=== PATIENT | female | born 1970 | race Hispanic/Latino ===

== ENCOUNTER 2016-09-13 00:43 | Observation (INO) | payer SELFPAY ==
[2016-09-13 00:43] VITALS: BMI 10.8
[2016-09-13 01:01] VITALS: RESP 16
--- NOTE | 2016-09-13 01:07 | C.PDOC ---
History Of Present Illness A 46 y/o F was found drunk in front of a house [employer]. Admits to drinking ETOH. Denies suicidal, homicidal ideation, or any physical complaints. Time Seen by Provider: 09/13/16 01:07 Chief Complaint (Nursing): Substance Abuse History Per: Patient History/Exam Limitations: no limitations Onset/Duration Of Symptoms: Hrs Current Symptoms Are (Timing): Still Present Suicide/Self Injury Attempted (Context): None Modifying Factor(s): Alcohol Severity: Mild Associated Symptoms: denies: Suicidal Thoughts, Suicidal Plan Involuntary Hold By: None Recent travel outside of the [place]: No Additional History Per: Patient Past Medical History Reviewed: Historical Data, Nursing Documentation, Vital Signs Vital Signs: Last Vital Signs Temp 97.9 F 09/13/16 05:29 Pulse 82 09/13/16 05:29 Resp 16 09/13/16 05:29 BP 95/62 L 09/13/16 05:29 Pulse Ox 98 09/13/16 05:29 - Medical History PMH: Bronchitis, Gall Bladder Disease, Migraine Denies: Chronic Kidney Disease Surgical History: Appendectomy (2000), Tonsillectomy (At 14yo) - [facility] Procedures APPLICATION OF SPLINT (02/10/14) Family History: States: Unknown Family Hx - Social History Hx Tobacco Use: Yes Hx Alcohol Use: Yes Hx Substance Use: Yes - Immunization History Hx Tetanus Toxoid Vaccination: No Hx Influenza Vaccination: No Hx Pneumococcal Vaccination: No Review Of Systems Constitutional: Positive for: Other (ETOH intoxicated). Negative for: Fever, Chills, Sweats Cardiovascular: Negative for: Chest Pain, Palpitations Respiratory: Negative for: Shortness of Breath Gastrointestinal: Negative for: Nausea, Vomiting, Abdominal Pain, Diarrhea Skin: Negative for: Rash, Lesions, Bruising Neurological: Negative for: Dizziness Psych: Negative for: Anxiety, Suicidal ideation, Other (Homicidal ideation) Physical Exam - Physical Exam Appears: Non-toxic, No Acute Distress, Other (ETOH intoxicated, (+) AOB, no signs of visible trauma) Skin: Warm, Dry Head: Atraumatic Eye(s): bilateral: Normal Inspection Oral Mucosa: Moist Neck: Trachea Midline, Supple Chest: Symmetrical Cardiovascular: Rhythm Regular Respiratory: No Rales, No Rhonchi, No Wheezing Gastrointestinal/Abdominal: Soft, No Tenderness Back: No CVA Tenderness Neurological/Psych: Oriented x3 (Awake and alert) Gait: Unsteady ED Course And Treatment O2 Sat by Pulse Oximetry: 97 (RA) Pulse Ox Interpretation: Normal Reevaluation Time: 05:48 Reassessment Condition: Improved ED OBSERVATION Discharge: Yes Date of observation admission: 09/13/16 Time of observation admission: 01:34 - Observation admission statement Patient is being placed in observation because:: acute alcohol intoxication - Goals of Observation Goals of observation are:: sobriety - Progress Note Progress Note: 09/13/16 01:35 vitals stable Disposition Counseled Patient/Family Regarding: Studies Performed, Diagnosis, Need For Followup - Disposition Disposition: HOME/ ROUTINE Disposition Time: 01:07 Condition: FAIR - Clinical Impression Clinical Impression: Alcohol intoxication - Scribe Statement The provider has reviewed the documentation as recorded by the Scribselvin esquivel All medical record entries made by the Ankuribselvin were at my direction and personally dictated by me. I have reviewed the chart and agree that the record accurately reflects my personal performance of the history, physical exam, medical decision making, and the department course for this patient. I have also personally directed, reviewed, and agree with the discharge instructions and disposition.
[2016-09-13 05:29] VITALS: BP 95/62; PULSE 82; TEMP 97.9
[2016-09-13 05:49] VITALS: O2SAT 97
== END 2016-09-13 05:49 | disposition home or self-care (01) ==
LOC: C.ER 00:43 → C.9OBSV 01:33
PROVIDERS: ADMIT Emergency Medicine; ATTEND Emergency Medicine
DX: F10.129 Alcohol abuse with intoxication, unspecified (principal); Z87.891 Personal history of nicotine dependence; Y90.9 Presence of alcohol in blood, level not specified

== ENCOUNTER 2017-04-09 12:02 | Emergency (ER) | payer OTHER ==
[2017-04-09 12:46] VITALS: BMI 25.9
--- NOTE | 2017-04-09 14:06 | C.PDOC ---
History Of Present Illness 46 y/o female presents to ED with complaints of right rib pain developing 4 am this morning associated with cough she has had for 2 weeks. Patient states she has had cold like symptoms and now developing rib pain she thinks is because of too much coughing. Patient denies fever, chills, abdominal pain, sob or any other complaints at this time. Time Seen by Provider: 04/09/17 13:48 Chief Complaint (Nursing): Cough, Cold, Congestion History Per: Patient History/Exam Limitations: no limitations Onset/Duration Of Symptoms: Hrs Current Symptoms Are (Timing): Still Present Associated Symptoms: Cough Past Medical History Reviewed: Historical Data, Nursing Documentation, Vital Signs Vital Signs: Last Vital Signs Temp 100.3 F H 04/09/17 12:46 Pulse 85 04/09/17 12:46 Resp 18 04/09/17 12:46 BP 125/80 04/09/17 12:46 Pulse Ox 96 04/09/17 15:37 - Medical History PMH: Bronchitis, Gall Bladder Disease, Migraine Surgical History: Appendectomy (2000), Tonsillectomy (At 14yo) - [facility] Procedures APPLICATION OF SPLINT (02/10/14) Family History: States: No Known Family Hx - Social History Hx Tobacco Use: Yes Hx Alcohol Use: Yes Hx Substance Use: Yes - Immunization History Hx Tetanus Toxoid Vaccination: No Hx Influenza Vaccination: No Hx Pneumococcal Vaccination: No Review Of Systems Constitutional: Negative for: Fever, Chills Respiratory: Positive for: Cough Gastrointestinal: Negative for: Nausea, Vomiting, Abdominal Pain Musculoskeletal: Positive for: Other (rib pain) Physical Exam - Physical Exam Appears: Non-toxic, No Acute Distress Skin: Warm, Dry, No Rash Head: Atraumatic, Normacephalic Eye(s): bilateral: Normal Inspection Oral Mucosa: Moist Neck: Normal ROM, Supple Cardiovascular: Rhythm Regular Respiratory: Normal Breath Sounds, No Rales, No Rhonchi, No Wheezing Gastrointestinal/Abdominal: Soft, No Tenderness, No Guarding, No Rebound Extremity: Normal ROM, Capillary Refill (<2 seconds) Neurological/Psych: Oriented x3 ED Course And Treatment ECG: Interpreted By Me, Viewed By Me ECG Rhythm: Sinus Rhythm Rate From EC (bpm) O2 Sat by Pulse Oximetry: 96 (RA) Pulse Ox Interpretation: Normal - Other Rad CXR X-Ray: Viewed By Me, Read By Radiologist Interpretation: IMPRESSION: Right lower lobe opacities noted within the medial right lower lobe as well as right mid to lower lateral lung zone possibly pleural based opacities. Correlate clinically for pneumonia. Recommend follow- up to complete resolution. Small right pleural effusion. Mild biapical pleural thickening. Mild cardiomegaly. Progress Note: ECG, CXR ordered. Influenza test. Blood work, UA ordered. CXR showed right lower lobe infiltrate. Antibiotics IV given at ED. Patient will be discharged with PO antibiotics Disposition Counseled Patient/Family Regarding: Studies Performed, Diagnosis, Need For Followup, Rx Given - Disposition Referrals: [facility] [Outside] Disposition: HOME/ ROUTINE Disposition Time: 16:47 Condition: STABLE Additional Instructions: Follow up with your doctor or our clinic. Prescriptions: Azithromycin 1 tab PO DAILY #6 tab Ibuprofen [Motrin] 1 tab PO TID PRN #30 tab PRN Reason: Pain Instructions: Community Acquired Pneumonia (ED) Forms: [facility] (Faroese), Work Excuse - POA Present On Arrival: None - Clinical Impression Clinical Impression: Pneumonia - Scribe Statement The provider has reviewed the documentation as recorded by the Scribselvin Arthur All medical record entries made by the Ankuribselvin were at my direction and personally dictated by me. I have reviewed the chart and agree that the record accurately reflects my personal performance of the history, physical exam, medical decision making, and the department course for this patient. I have also personally directed, reviewed, and agree with the discharge instructions and disposition.
[2017-04-09] MEDS ORDERED: Albuterol 0.083% Inhal Sol (2.5 mg/3 mL) UD INH SCH (14:15)
--- NOTE | 2017-04-09 14:31 | RAD ---
HISTORY: SOB COMPARISON: Chest x-ray performed 07/04/16 TECHNIQUE: Chest PA and lateral FINDINGS: LUNGS: Right lower lobe opacities noted within the medial right lower lobe as well as right mid to lower lateral lung zone possibly pleural based opacities. Recommend follow-up to complete resolution. Small right pleural effusion. No definite pneumothorax. Mild biapical pleural thickening. Please note that chest x-ray has limited sensitivity for the detection of pulmonary masses. CARDIOVASCULAR: Mild cardiomegaly. OSSEOUS STRUCTURES: Degenerative changes. VISUALIZED UPPER ABDOMEN: Unremarkable. OTHER FINDINGS: None. IMPRESSION: Right lower lobe opacities noted within the medial right lower lobe as well as right mid to lower lateral lung zone possibly pleural based opacities. Correlate clinically for pneumonia. Recommend follow-up to complete resolution. Small right pleural effusion. Mild biapical pleural thickening. Mild cardiomegaly.
[2017-04-09] MEDS ORDERED: cefTRIAXone IV 1 gm in Dextros 50 ML IVPB ONE (14:34)
[2017-04-09] MEDS ORDERED: Sodium Chloride 0.9% 1,000 ML IV ONE (14:36)
[2017-04-09] MEDS ORDERED: Sodium Chloride 0.9% 1,000 ML ONE (15:06)
[2017-04-09] MEDS: Albuterol 0.083% Inhal Sol (2.5 mg/3 mL) UD INH SCH ×2 (16:00→16:15)
[2017-04-09] MEDS ORDERED: Albuterol 0.083% Inhal Sol (2.5 mg/3 mL) UD ONE (16:08)
[2017-04-09 17:05] VITALS: BP 120/82; PULSE 88; RESP 19; TEMP 97.7; O2SAT 95
== END 2017-04-09 17:19 | disposition home or self-care (01) ==
LOC: C.ER 12:02
DX: J18.9 Pneumonia, unspecified organism (principal); Z87.891 Personal history of nicotine dependence
CPT/HCPCS: 71046; 87804; 94640; 96365; 96372; 99283; J0696; J1885; J7040

== ENCOUNTER 2018-05-21 17:49 | Observation (INO) | payer SELFPAY ==
[2018-05-21 17:49] VITALS: BMI 25.9
--- NOTE | 2018-05-21 19:53 | C.PDOC ---
History Of Present Illness 47 y/o female presents for evaluation of pressure-like chest pain since yesterday. Pain is described as mid-sternal, non-radiating, and began while patient was sitting down, non-exertional. Patient reports associated SOB. At present she is asymptomatic and has no pain. Patient did not take any medication [employer]. Patient admits she had similar pain last year, and underwent a stress test that was abnormal, but nothing came of it. Additionally, patient states that she had been feeling dizzy for about a week when a few days ago she fell, hit her head, and passed out. She denies any other injury. No recent travel. No recent hospitalizations. Patient admits to mild cough. She denies any fevers, chills, nausea, vomiting, or change in bowel movements. Patients blood pressure was found to be elevated at 175/131 on arrival. At time of examination BP is now 155/92, without medical intervention. Patient states she has no prior hx of hypertension. Time Seen by Provider: 05/21/18 19:12 Chief Complaint (Nursing): Chest Pain History Per: Patient History/Exam Limitations: no limitations Onset/Duration Of Symptoms: Days (x 1) Current Symptoms Are (Timing): Gone Quality: Pressure Alleviating Factors: None Past Medical History Reviewed: Historical Data, Nursing Documentation, Vital Signs Vital Signs: Last Vital Signs Temp 98.4 F 05/21/18 17:56 Pulse 84 05/21/18 19:05 Resp 17 05/21/18 19:05 BP 155/92 H 05/21/18 19:05 Pulse Ox 97 05/21/18 19:05 - Medical History PMH: Bronchitis, Gall Bladder Disease, Migraine Denies: Chronic Kidney Disease Surgical History: Appendectomy (2000), Tonsillectomy (At 14yo) - [facility] Procedures APPLICATION OF SPLINT (02/10/14) Family History: States: Unknown Family Hx - Social History Hx Tobacco Use: Yes Hx Alcohol Use: Yes Hx Substance Use: Yes - Immunization History Hx Tetanus Toxoid Vaccination: No Hx Influenza Vaccination: No Hx Pneumococcal Vaccination: No Review Of Systems Except As Marked, All Systems Reviewed And Found Negative. Constitutional: Negative for: Fever Eyes: Negative for: Vision Change Cardiovascular: Positive for: Chest Pain. Negative for: Palpitations Respiratory: Positive for: Cough, Shortness of Breath. Negative for: Pleuritic Pain Gastrointestinal: Negative for: Nausea, Vomiting, Abdominal Pain, Diarrhea Musculoskeletal: Negative for: Back Pain Skin: Negative for: Rash Neurological: Positive for: Dizziness, Other (Syncopal episode). Negative for: Weakness, Numbness, Headache Physical Exam - Physical Exam Appears: Non-toxic, No Acute Distress Skin: Warm, Dry, No Rash Head: Normacephalic, Swelling (Hematoma to the right forehead) Eye(s): bilateral: Normal Inspection (conjunctiva clear), PERRL, EOMI Oral Mucosa: Moist Neck: Normal ROM Chest: Symmetrical, No Tenderness Cardiovascular: Rhythm Regular, No Murmur, Other (Normal S1,S2) Respiratory: No Rales, No Rhonchi, No Wheezing, Other (Lungs CTA bilaterally) Gastrointestinal/Abdominal: Soft, No Tenderness, No Distention, No Guarding, No Rebound Extremity: Bilateral: Atraumatic, Normal Color And Temperature, Other (no cyanosis or edema) Pulses: Left Dorsalis Pedis: Normal, Right Dorsalis Pedis: Normal Neurological/Psych: Oriented x3, Normal Speech, Normal Cranial Nerves (2-12 intact), Normal Motor, Normal Sensation, Other (GCS of 15) ED Course And Treatment - Laboratory Results Result Diagrams: 05/21/18 20:03 05/21/18 20:03 ECG: Interpreted By Ne ECG Rhythm: Sinus Rhythm Interpretation Of ECG: Normal intervals, Right axis deviation, No ST elevations or depressions Rate From EC O2 Sat by Pulse Oximetry: 97 (RA) Pulse Ox Interpretation: Normal - CT Scan/US CT Head Other Rad Studies (CT/US): Read By Radiologist, Radiology Report Reviewed CT/US Interpretation: EXAM: CT Head without Intravenous Contrast. CLINICAL HISTORY: Trauma/syncope. TECHNIQUE: Axial computed tomography images of the head/brain without intravenous contrast. COMPARISON: None provided. FINDINGS: BRAIN. No acute intraparenchymal hemorrhage. No mass lesion. No CT evidence for acute territorial infarct. No midline shift or extra-axial collections. VENTRICLES: No hydrocephalus. ORBITS: The orbits are unremarkable. SINUSES AND MASTOIDS: Bilateral ethmoid and maxillary sinusitis. The mastoid air cells are clear. BONES: No fracture. SOFT TISSUES: Unremarkable. IMPRESSION: S inusitis. No acute intracranial abnormality. Medical Decision Making Medical Decision Making: Impression: Chest pain Plan: - EKG - CXR - Labs - Head CT Progress: CT shows sinusitis, no acute abnormality. Discussed lab results with patient, urine positive for cocaine, she reports chest pain at this time, advised she should be admitted, patient agrees with plan. Spoke with Dr. Lara who accepted patient. Disposition Counseled Patient/Family Regarding: Studies Performed, Diagnosis - Disposition Disposition: HOSPITALIZED Disposition Time: 22:00 Condition: STABLE - Clinical Impression Clinical Impression: Cocaine abuse, Chest pain - Scribe Statement The provider has reviewed the documentation as recorded by the Mary Chambers Provider Attestation: All medical record entries made by the Mary were at my direction and personally dictated by me. I have reviewed the chart and agree that the record accurately reflects my personal performance of the history, physical exam, medical decision making, and the department course for this patient. I have also personally directed, reviewed, and agree with the discharge instructions and disposition.
[2018-05-21 20:15] LABS: BASO # 0.1 K/uL (0.0-0.2); BASO % 1.1 % (0.0-2.0); EOS # 0.4 K/uL (0.0-0.7); EOS % 7.8 % (0.0-4.0); HEMOGLOBIN 14.2 g/dL (11.0-16.0); LYMPH # 1.3 K/uL (1.0-4.3); LYMPH % 23.9 % (20.0-40.0); MEAN CORPUSCULAR HEMOGLOBIN 35.8 pg (27.0-31.0); MEAN CORPUSCULAR HGB CONC 32.8 g/dL (33.0-37.0); MEAN PLATELET VOLUME 8.9 fL (7.2-11.7); MONO # 0.7 K/uL (0.0-0.8); NEUT % 55.2 % (50.0-75.0); NRBC % 0.2 % (0.0-2.0); RBC 3.96 Mil/uL (3.80-5.20); RED CELL DISTRIBUTION WIDTH 15.7 % (11.5-14.5); WHITE BLOOD COUNT 5.4 K/uL (4.8-10.8)
[2018-05-21 20:22] LABS: MEAN CELL VOLUME 109.4 fL (81.0-99.0)
[2018-05-21 20:24] LABS: INR 0.9
[2018-05-21 20:25] LABS: PROTHROMBIN TIME 9.9 SECONDS (9.7-12.2)
[2018-05-21 20:31] LABS: ALB/GLOB RATIO 1.5 (1.0-2.1); ALBUMIN 4.8 g/dL (3.5-5.0); ALT/SGPT 78 U/L (9-52); AST/SGOT 123 U/L (14-36); BLOOD UREA NITROGEN 6 mg/dL (7-17); CALCIUM 9.8 mg/dl (8.6-10.4); GFR NON-AFRICAN AMERICAN > 60
[2018-05-21 21:11] LABS: BARBITURATES, UR NEGATIVE (NEGATIVE); BENZODIAZEPINES, UR NEGATIVE (NEGATIVE); OPIATES, UR NEGATIVE (NEGATIVE); PHENCYCLIDINE, UR NEGATIVE (NEGATIVE)
[2018-05-21] MEDS ORDERED: Nitroglycerin 2% Ointment Foilpak UD TOP ONE (22:34)
--- NOTE | 2018-05-21 23:02 | CP.PCM.HP ---
<Chaparro Maxwell - Last Filed: 05/22/18 04:34> History of Present Illness - History of Present Illness History of Present Illness: H&P for Dr. Lara. 47 F w/ PMhx of HTN, schleroderma, raynauds presents to ED for 2 day of chest pain. Patient states pain for past 2 days was intermit, w/ radiation to R shoulder, 7/10 at its peak. Pt reports SOB associated with chest pain & dizziness. Patient reports having gotten dizzy approximately 2 days prior, resulting her to fall and hit her head against furniture. Patient denies recent travel, ill contacts, being sick. ROS: Denies abdominal pain, lower extremity pain, constipation, diarrhea, nausea, vomiting PMD: Denies PMHx: HTN PSHx: Appendectomy, tonsilectomy Meds: None Allergies: Pseudoephedrine anaphylaxis Family Hx: father [place] in 40s, of CHF at 71; mother, of CVA at 54; brother, [place] at 38 SHx: + cocaine use last week, denies ETOH (previous hx ETOH abuse), denies other drug use, smokes 1 pack per day, 20 + year, denies ETOH use Present on Admission - Present on Admission Any Indicators Present on Admission: No History of DVT/PE: No History of Uncontrolled Diabetes: No Urinary Catheter: No Decubitus Ulcer Present: No Review of Systems - Constitutional Constitutional: absent: Chills, Fever - EENT Eyes: absent: Blurred Vision, Change in Vision Nose/Mouth/Throat: absent: Nasal Congestion, Nose Pain - Cardiovascular Cardiovascular: Chest Pain, Chest Pain at Rest. absent: Dyspnea - Respiratory Respiratory: Dyspnea - Gastrointestinal Gastrointestinal: absent: Abdominal Pain, Bloating - Genitourinary Genitourinary: absent: Change in Urinary Stream, Hematuria - Musculoskeletal Musculoskeletal: absent: Arthralgias, Myalgias - Neurological Neurological: absent: Abnormal Gait, Abnormal Hearing - Psychiatric Psychiatric: absent: Confusion, Depression Past Patient History - Past Medical History & Family History Past Medical History?: Yes - Past Social History Smoking Status: Heavy Smoker > 10 Cigarettes Daily - CARDIAC Hx Cardiac Disorders: Yes (See comment) Hx Circulatory Problems: Yes (Reynaud's) Other/Comment: Scleraderma. Systematic sclorosis - PULMONARY Hx Bronchitis: Yes - NEUROLOGICAL Hx Migraine: Yes - HEENT Hx HEENT Problems: Yes Hx Epistaxis: Yes - RENAL Hx Chronic Kidney Disease: No - ENDOCRINE/METABOLIC Hx Endocrine Disorders: No - HEMATOLOGICAL/ONCOLOGICAL Hx Blood Disorders: No - INTEGUMENTARY Hx Dermatological Problems: No - MUSCULOSKELETAL/RHEUMATOLOGICAL Hx Musculoskeletal Disorders: Yes Hx Back Pain: Yes Hx Falls: No - GASTROINTESTINAL Hx Gall Bladder Disease: Yes - GENITOURINARY/GYNECOLOGICAL Hx Genitourinary Disorders: No - PSYCHIATRIC Hx Substance Use: Yes - SURGICAL HISTORY Hx Appendectomy: Yes (2000) Hx Tonsillectomy: Yes (At 14yo) - ANESTHESIA Hx Anesthesia: Yes Hx Anesthesia Reactions: No Hx Malignant Hyperthermia: No Meds Allergies/Adverse Reactions: Allergies Allergy/AdvReac Type Severity Reaction Status Date / Time pseudoephedrine HCl Allergy ANGIOEDEMA Verified 04/09/17 12:44 [From Sudafed] Physical Exam - Constitutional Appears: Non-toxic, No Acute Distress - Head Exam Additional comments: R forehead bruise/ resolving - Eye Exam Eye Exam: EOMI, Normal appearance Pupil Exam: NORMAL ACCOMODATION - ENT Exam ENT Exam: Mucous Membranes Moist - Respiratory Exam Respiratory Exam: Clear to Auscultation Bilateral, NORMAL BREATHING PATTERN. absent: Rales, Rhonchi, Wheezes - Cardiovascular Exam Cardiovascular Exam: +S1, +S2. absent: Systolic Murmur - GI/Abdominal Exam GI & Abdominal Exam: Normal Bowel Sounds, Soft, Tenderness. absent: Distended, Firm Additional comments: + muprhy sign - Extremities Exam Extremities exam: Positive for: full ROM, normal inspection. Negative for: calf tenderness, pedal edema - Back Exam Back exam: CVA tenderness (L), CVA tenderness (R) - Neurological Exam Neurological exam: Alert, Oriented x3 - Psychiatric Exam Psychiatric exam: Normal Affect, Normal Mood - Skin Skin Exam: Dry, Intact, Normal Color, Warm Results - Vital Signs Recent Vital Signs: Last Vital Signs Temp 98.4 F 05/21/18 17:56 Pulse 84 05/21/18 19:05 Resp 17 05/21/18 19:05 BP 155/92 H 05/21/18 19:05 Pulse Ox 97 05/21/18 22:14 - Labs Result Diagrams: 05/21/18 20:03 05/21/18 20:03 Labs: Laboratory Results - last 24 hr 05/21/18 05/21/18 05/21/18 20:03 20:03 20:03 WBC 5.4 RBC 3.96 Hgb 14.2 Hct 43.3 MCV 109.4 H D MCH 35.8 H MCHC 32.8 L RDW 15.7 H Plt Count 202 MPV 8.9 Neut % (Auto) 55.2 Lymph % (Auto) 23.9 [place] % (Auto) 12.0 H Eos % (Auto) 7.8 H Baso % (Auto) 1.1 Neut # (Auto) 3.0 Lymph # (Auto) 1.3 [place] # (Auto) 0.7 Eos # (Auto) 0.4 Baso # (Auto) 0.1 PT 9.9 INR 0.9 APTT 38 H Sodium 140 Potassium 3.6 Chloride 101 Carbon Dioxide 28 Anion Gap 15 BUN 6 L Creatinine 0.7 Est GFR ( Amer) > 60 Est GFR (Non-Af Amer) > 60 Random Glucose 53 L D Calcium 9.8 Total Bilirubin 0.9 AST 123 H ALT 78 H Alkaline Phosphatase 80 Troponin I < 0.0120 Total Protein 8.1 Albumin 4.8 Globulin 3.3 Albumin/Globulin Ratio 1.5 Urine Opiates Screen Urine Methadone Screen Ur Barbiturates Screen Ur Phencyclidine Scrn Ur Amphetamines Screen U Benzodiazepines Scrn U Oth Cocaine Metabols U Cannabinoids Screen 05/21/18 20:45 WBC RBC Hgb Hct MCV MCH MCHC RDW Plt Count MPV Neut % (Auto) Lymph % (Auto) [place] % (Auto) Eos % (Auto) Baso % (Auto) Neut # (Auto) Lymph # (Auto) [place] # (Auto) Eos # (Auto) Baso # (Auto) PT INR APTT Sodium Potassium Chloride Carbon Dioxide Anion Gap BUN Creatinine Est GFR ( Amer) Est GFR (Non-Af Amer) Random Glucose Calcium Total Bilirubin AST ALT Alkaline Phosphatase Troponin I Total Protein Albumin Globulin Albumin/Globulin Ratio Urine Opiates Screen Negative Urine Methadone Screen Negative Ur Barbiturates Screen Negative Ur Phencyclidine Scrn Negative Ur Amphetamines Screen Negative U Benzodiazepines Scrn Negative U Oth Cocaine Metabols Positive H U Cannabinoids Screen Negative Assessment & Plan - Assessment and Plan (Free Text) Assessment: 47 F w/ PMhx of HTN, raynauds, scleroderma, presents with dizziness and chest pain Plan: Chest Pain R/o ACS - UDS cocaine + - EKG NSR w/ HR 100 BPM - CXRAY: barel shape chest, no acute disease identified, will f/u official read - JARON X 2 negative F/u 3rd JARON - F/u Lipid, TSH - ECHO 2016 EF 65% - c/w aspirin 81 mg daily Abdominal pain - F/u Abd U/S - F/u hepatitis panel - T. Bili 0/9 - AST/ ALT elevated 123/78 History of Hypertensive - Avoid beta blockers - BP 150s, 1 X IV enalapril 2.5 mg, will monitor PPx - DVT: lovenox 40 SC, SCDs - heart health diet <Blayne Lara - Last Filed: 05/22/18 05:53> Results - Vital Signs Recent Vital Signs: Last Vital Signs Temp 98.2 F 05/22/18 03:02 Pulse 60 05/22/18 03:02 Resp 20 05/22/18 03:02 BP 155/91 H 05/22/18 03:02 Pulse Ox 97 05/22/18 03:02 - Labs Result Diagrams: 05/22/18 04:59 05/21/18 20:03 Labs: Laboratory Results - last 24 hr 05/21/18 05/21/18 05/21/18 20:03 20:03 20:03 WBC 5.4 RBC 3.96 Hgb 14.2 Hct 43.3 MCV 109.4 H D MCH 35.8 H MCHC 32.8 L RDW 15.7 H Plt Count 202 MPV 8.9 Neut % (Auto) 55.2 Lymph % (Auto) 23.9 [place] % (Auto) 12.0 H Eos % (Auto) 7.8 H Baso % (Auto) 1.1 Neut # (Auto) 3.0 Lymph # (Auto) 1.3 [place] # (Auto) 0.7 Eos # (Auto) 0.4 Baso # (Auto) 0.1 PT 9.9 INR 0.9 APTT 38 H Sodium 140 Potassium 3.6 Chloride 101 Carbon Dioxide 28 Anion Gap 15 BUN 6 L Creatinine 0.7 Est GFR ( Amer) > 60 Est GFR (Non-Af Amer) > 60 Random Glucose 53 L D Calcium 9.8 Total Bilirubin 0.9 AST 123 H ALT 78 H Alkaline Phosphatase 80 Total Creatine Kinase CK-MB (Mass) Troponin I < 0.0120 Total Protein 8.1 Albumin 4.8 Globulin 3.3 Albumin/Globulin Ratio 1.5 LDL Cholesterol Direct TSH 3rd Generation Urine Opiates Screen Urine Methadone Screen Ur Barbiturates Screen Ur Phencyclidine Scrn Ur Amphetamines Screen U Benzodiazepines Scrn U Oth Cocaine Metabols U Cannabinoids Screen Alcohol, Quantitative Hep Bs Antigen 05/21/18 05/22/18 05/22/18 20:45 04:09 04:59 WBC RBC Hgb Hct MCV MCH MCHC RDW Plt Count MPV Neut % (Auto) Lymph % (Auto) [place] % (Auto) Eos % (Auto) Baso % (Auto) Neut # (Auto) Lymph # (Auto) [place] # (Auto) Eos # (Auto) Baso # (Auto) PT INR APTT Sodium Potassium Chloride Carbon Dioxide Anion Gap BUN Creatinine Est GFR ( Amer) Est GFR (Non-Af Amer) Random Glucose Calcium Total Bilirubin AST ALT Alkaline Phosphatase Total Creatine Kinase 62 CK-MB (Mass) 0.41 Troponin I 0.0150 Total Protein Albumin Globulin Albumin/Globulin Ratio LDL Cholesterol Direct TSH 3rd Generation Urine Opiates Screen Negative Urine Methadone Screen Negative Ur Barbiturates Screen Negative Ur Phencyclidine Scrn Negative Ur Amphetamines Screen Negative U Benzodiazepines Scrn Negative U Oth Cocaine Metabols Positive H U Cannabinoids Screen Negative Alcohol, Quantitative < 10 Hep Bs Antigen Negative 05/22/18 05/22/18 04:59 04:59 WBC 4.7 L RBC 3.86 Hgb 13.8 Hct 42.1 MCV 109.2 H MCH 35.8 H MCHC 32.8 L RDW 15.2 H Plt Count 179 MPV 8.7 Neut % (Auto) 47.4 L Lymph % (Auto) 30.6 [place] % (Auto) 13.4 H Eos % (Auto) 7.4 H Baso % (Auto) 1.2 Neut # (Auto) 2.2 Lymph # (Auto) 1.4 [place] # (Auto) 0.6 Eos # (Auto) 0.3 Baso # (Auto) 0.1 PT INR APTT Sodium Potassium Chloride Carbon Dioxide Anion Gap BUN Creatinine Est GFR ( Amer) Est GFR (Non-Af Amer) Random Glucose Calcium Total Bilirubin AST ALT Alkaline Phosphatase Total Creatine Kinase CK-MB (Mass) Troponin I Total Protein Albumin Globulin Albumin/Globulin Ratio LDL Cholesterol Direct 113 TSH 3rd Generation 4.45 Urine Opiates Screen Urine Methadone Screen Ur Barbiturates Screen Ur Phencyclidine Scrn Ur Amphetamines Screen U Benzodiazepines Scrn U Oth Cocaine Metabols U Cannabinoids Screen Alcohol, Quantitative Hep Bs Antigen Assessment & Plan - Date & Time Date: 05/22/18 (I have seen and examined the patient. I agree with the findings and plan of care as documented by Dr. Maxwell. Patient with chest pain. Cocaine abuse. Avoid beta blockers. ROMIx3 with EKG. Aspirin and Statin. Abdominal pain. Check Ultrasound. Check hep panel. History of scleroderma. Not currently on any medications. Monitor for acute changes.) Time: 05:51 Attending/Attestation - Attestation I have personally seen and examined this patient.: Yes I have fully participated in the care of the patient.: Yes I have reviewed all pertinent clinical information: Yes
[2018-05-22 04:44] LABS: CK-MB 0.41 ng/mL (0.0-3.38)
[2018-05-22 05:11] LABS: BASO # 0.1 K/uL (0.0-0.2); BASO % 1.2 % (0.0-2.0); EOS # 0.3 K/uL (0.0-0.7); EOS % 7.4 % (0.0-4.0); HEMOGLOBIN 13.8 g/dL (11.0-16.0); LYMPH # 1.4 K/uL (1.0-4.3); LYMPH % 30.6 % (20.0-40.0); MEAN CELL VOLUME 109.2 fL (81.0-99.0); MEAN CORPUSCULAR HEMOGLOBIN 35.8 pg (27.0-31.0); MEAN CORPUSCULAR HGB CONC 32.8 g/dL (33.0-37.0); MEAN PLATELET VOLUME 8.7 fL (7.2-11.7); MONO # 0.6 K/uL (0.0-0.8); MONO % 13.4 % (0.0-10.0); NEUT # 2.2 K/uL (1.8-7.0); NEUT % 47.4 % (50.0-75.0); NRBC % 0.1 % (0.0-2.0); RBC 3.86 Mil/uL (3.80-5.20); RED CELL DISTRIBUTION WIDTH 15.2 % (11.5-14.5); WHITE BLOOD COUNT 4.7 K/uL (4.8-10.8)
[2018-05-22 05:29] LABS: LDL CHOLESTEROL 113 mg/dL (0-129)
[2018-05-22] MEDS ORDERED: Enalaprilat 2.5 MG/2 ML IV ONE (05:31)
[2018-05-22 05:49] LABS: HEPATITIS B SURFACE AG Negative (NEGATIVE)
[2018-05-22 05:55] LABS: HEPATITIS A IGM NEGATIVE (NEGATIVE); HEPATITIS B CORE AB NEGATIVE (NEGATIVE)
[2018-05-22 06:06] LABS: ALB/GLOB RATIO 1.4 (1.0-2.1); ALBUMIN 4.4 g/dL (3.5-5.0); ALT/SGPT 55 U/L (9-52); AST/SGOT 124 U/L (14-36); BLOOD UREA NITROGEN 11 mg/dL (7-17); GFR NON-AFRICAN AMERICAN > 60; HDL CHOLESTEROL 93 mg/dL (30-70); HEPATITIS C ANTIBODY NEGATIVE (NEGATIVE)
--- NOTE | 2018-05-22 07:50 | CT ---
Date of service: 05/21/2018 PROCEDURE: CT HEAD WITHOUT CONTRAST. HISTORY: syncope/head injury COMPARISON: 07/04/2016 TECHNIQUE: Axial computed tomography images were obtained through the head/brain without intravenous contrast. Radiation dose: Total exam DLP = 982.0 mGy-cm. This CT exam was performed using one or more of the following dose reduction techniques: Automated exposure control, adjustment of the mA and/or kV according to patient size, and/or use of iterative reconstruction technique. FINDINGS: HEMORRHAGE: No intracranial hemorrhage. BRAIN: No mass effect or edema. No atrophy or chronic microvascular ischemic changes. VENTRICLES: Unremarkable. No hydrocephalus. CALVARIUM: Unremarkable. PARANASAL SINUSES: Mild mucosal thickening of the left maxillary sinus and ethmoid air cells. MASTOID AIR CELLS: Unremarkable as visualized. No inflammatory changes. OTHER FINDINGS: Soft tissue swelling overlying the right frontal soft tissues. IMPRESSION: No acute intracranial abnormality. Mild sinus mucosal disease. If symptoms persist, consider correlation with MRI. A preliminary report was generated at 8:55 p.m. on 05/21/[address] Anderson Jeffries from [facility]
[2018-05-22 08:28] VITALS: RESP 20; TEMP 97.4; O2SAT 98
[2018-05-22 09:55] LABS: CK-MB 0.66 ng/mL (0.0-3.38)
[2018-05-22] MEDS ORDERED: Enoxaparin 40 mg Syringe SC SCH (10:00)
--- NOTE | 2018-05-22 10:06 | RAD ---
Date of service: 05/21/2018 PROCEDURE: CHEST RADIOGRAPH, 1 VIEW HISTORY: chest pain COMPARISON: Comparison is made with 04/09/2017 FINDINGS: LUNGS: No evidence of new infiltrate or consolidation in the lungs PLEURA: No pneumothorax or pleural fluid seen. CARDIOVASCULAR: No aortic atherosclerotic calcification present. Normal. OSSEOUS STRUCTURES: No significant abnormalities. VISUALIZED UPPER ABDOMEN: Normal. OTHER FINDINGS: None. IMPRESSION: No active disease.
--- NOTE | 2018-05-22 12:51 | US ---
Date of service: 05/22/2018 HISTORY: RUQ pain, positive elizabeth sign, ? CVA tenderness COMPARISON: Comparison is made with the previous CT of the abdomen dated 06/06/2012 previous ultrasound of the abdomen dated 03/16/2014 TECHNIQUE: Sonographic evaluation of the abdomen. FINDINGS: LIVER: Measures 17 cm. Normal echogenicity of the liver parenchyma. No mass. No intrahepatic bile duct dilatation. GALLBLADDER: Unremarkable. No gallstones. COMMON BILE DUCT: Measures 4.7 mm. No stones. No dilatation. PANCREAS: Unremarkable as visualized. No mass. No ductal dilatation. RIGHT KIDNEY: Measures 9.9 x 5.3 x 6.9cm. Normal echogenicity. No calculus, mass, or hydronephrosis. LEFT KIDNEY: Measures 8.8 x 5.2 x 4.5cm. Normal echogenicity. No calculus, mass, or hydronephrosis. SPLEEN: Normal in size and contour. No mass. AORTA: No aneurysmal dilatation. IVC: Unremarkable. OTHER FINDINGS: None. IMPRESSION: Mild no ultrasound evidence of acute pathology in the right upper quadrant.
[2018-05-22] MEDS ORDERED: Multiple Vitamins Tab PO SCH (13:30)
[2018-05-22 13:52] VITALS: BP 100/74; PULSE 64
--- NOTE | 2018-05-22 14:07 | CP.PCM.DIS ---
Provider - Provider Date of Admission: 05/21/18 22:05 Attending physician: Blayne Lara MD Time Spent in preparation of Discharge (in minutes): 35 Diagnosis - Discharge Diagnosis (1) Non-cardiac chest pain Status: Resolved (2) History of scleroderma Status: Chronic (3) Alcohol abuse Status: Chronic (4) Cocaine abuse Status: Chronic Hospital Course - Lab Results Lab Results: Most Recent Lab Values WBC 4.7 K/uL (4.8-10.8) L 05/22/18 04:59 RBC 3.86 Mil/uL (3.80-5.20) 05/22/18 04:59 Hgb 13.8 g/dL (11.0-16.0) 05/22/18 04:59 Hct 42.1 % (34.0-47.0) 05/22/18 04:59 MCV 109.2 fL (81.0-99.0) H 05/22/18 04:59 MCH 35.8 pg (27.0-31.0) H 05/22/18 04:59 MCHC 32.8 g/dL (33.0-37.0) L 05/22/18 04:59 RDW 15.2 % (11.5-14.5) H 05/22/18 04:59 Plt Count 179 K/uL (130-400) 05/22/18 04:59 MPV 8.7 fL (7.2-11.7) 05/22/18 04:59 Neut % (Auto) 47.4 % (50.0-75.0) L 05/22/18 04:59 Lymph % (Auto) 30.6 % (20.0-40.0) 05/22/18 04:59 [place] % (Auto) 13.4 % (0.0-10.0) H 05/22/18 04:59 Eos % (Auto) 7.4 % (0.0-4.0) H 05/22/18 04:59 Baso % (Auto) 1.2 % (0.0-2.0) 05/22/18 04:59 Neut # (Auto) 2.2 K/uL (1.8-7.0) 05/22/18 04:59 Lymph # (Auto) 1.4 K/uL (1.0-4.3) 05/22/18 04:59 [place] # (Auto) 0.6 K/uL (0.0-0.8) 05/22/18 04:59 Eos # (Auto) 0.3 K/uL (0.0-0.7) 05/22/18 04:59 Baso # (Auto) 0.1 K/uL (0.0-0.2) 05/22/18 04:59 PT 9.9 SECONDS (9.7-12.2) 05/21/18 20:03 INR 0.9 05/21/18 20:03 APTT 38 SECONDS (21-34) H 05/21/18 20:03 Sodium 136 mmol/L (132-148) 05/22/18 04:59 Potassium 5.0 mmol/L (3.6-5.2) 05/22/18 04:59 Chloride 102 mmol/L (98-107) 05/22/18 04:59 Carbon Dioxide 29 mmol/L (22-30) 05/22/18 04:59 Anion Gap 9 (10-20) L 05/22/18 04:59 BUN 11 mg/dL (7-17) 05/22/18 04:59 Creatinine 0.7 mg/dL (0.7-1.2) 05/22/18 04:59 Est GFR ( Amer) > 60 05/22/18 04:59 Est GFR (Non-Af Amer) > 60 05/22/18 04:59 Random Glucose 89 mg/dL (65-105) D 05/22/18 04:59 Calcium 9.0 mg/dl (8.6-10.4) 05/22/18 04:59 Phosphorus 4.9 mg/dL (2.5-4.5) H 05/22/18 04:59 Magnesium 1.9 mg/dL (1.6-2.3) 05/22/18 04:59 Total Bilirubin 1.1 mg/dL (0.2-1.3) 05/22/18 04:59 AST 124 U/L (14-36) H 05/22/18 04:59 ALT 55 U/L (9-52) H D 05/22/18 04:59 Alkaline Phosphatase 66 U/L (38-126) 05/22/18 04:59 Total Creatine Kinase 69 U/L (30-135) 05/22/18 09:12 CK-MB (Mass) 0.66 ng/mL (0.0-3.38) 05/22/18 09:12 Troponin I < 0.0120 ng/mL (0.00-0.120) 05/22/18 09:12 Total Protein 7.5 g/dL (6.3-8.3) 05/22/18 04:59 Albumin 4.4 g/dL (3.5-5.0) 05/22/18 04:59 Globulin 3.1 gm/dL (2.2-3.9) 05/22/18 04:59 Albumin/Globulin Ratio 1.4 (1.0-2.1) 05/22/18 04:59 Triglycerides 161 mg/dL (0-149) H D 05/22/18 04:59 Cholesterol 214 mg/dL (0-199) H 05/22/18 04:59 LDL Cholesterol Direct 113 mg/dL (0-129) 05/22/18 04:59 HDL Cholesterol 93 mg/dL (30-70) H 05/22/18 04:59 TSH 3rd Generation 4.45 mIU/L (0.46-4.68) 05/22/18 04:59 Urine Opiates Screen Negative (NEGATIVE) 05/21/18 20:45 Urine Methadone Screen Negative (NEGATIVE) 05/21/18 20:45 Ur Barbiturates Screen Negative (NEGATIVE) 05/21/18 20:45 Ur Phencyclidine Scrn Negative (NEGATIVE) 05/21/18 20:45 Ur Amphetamines Screen Negative (NEGATIVE) 05/21/18 20:45 U Benzodiazepines Scrn Negative (NEGATIVE) 05/21/18 20:45 U Oth Cocaine Metabols Positive (NEGATIVE) H 05/21/18 20:45 U Cannabinoids Screen Negative (NEGATIVE) 05/21/18 20:45 Alcohol, Quantitative < 10 mg/dl (0-10) 05/22/18 04:09 Hepatitis A IgM Ab Negative (NEGATIVE) 05/22/18 04:59 Hep Bs Antigen Negative (NEGATIVE) 05/22/18 04:59 Hep Bs Antibody Negative (NEGATIVE) 05/22/18 04:59 Hep B Core IgM Ab Negative (NEGATIVE) 05/22/18 04:59 Hepatitis C Antibody Negative (NEGATIVE) 05/22/18 04:59 - Hospital Course Hospital Course: On admission: 47 F w/ PMhx of HTN, scleroderma, raynauds presents to ED for 2 day of chest pain. Patient states pain for past 2 days was intermit, w/ radiation to R shoulder, 7/10 at its peak. Pt reports SOB associated with chest pain & dizziness. Patient reports having gotten dizzy approximately 2 days prior, resulting her to fall and hit her head against furniture. Patient denies recent travel, ill contacts, being sick. Hospital course: Pt's UDS was postive for cocaine, so she did not receive beta blockers. She received NTG SL 0.4 mg with some improvement of chest pain. Head CT done in the ED was negative for acute intracranial pathology. EKG showed sinus bradycardia, no acute STTW changes. CXR showed no active disease. Her transaminitis was typical of 2 to 1 to ALT ratio in setting of chronic alcohol abuse, but due to RUQ tenderness and questionable murphys sign and abdominal US was ordered. It showed no acute abnormalities, no cholelithiasis or signs of cholecystitis. Her chest pain resolved the morning after admission, and body aches were responsive to Motrin. This is a summary of the hospital course. Please see EMR for full details. Pt is medically stable for discharge as per Dr. Mathias. Prescriptions needed: Gabapentin 300 mg 1 tab by mouth once daily at nighttime. Folate 1 mg 1 tab by mouth once daily at 8 am. Thiamine 100 mg 1 tab by mouth once daily at 8 am. Multivitamins 1 tab by mouth once daily at 8 am Pt should continue taking prior medication as previously prescribed. Pt counseled on against using alcohol to excess and using cocaine, and their negative effects on health. Pt should follow up with PMD, or [facility], within 2 weeks of discharge. Call to make an appointment. Should symptoms worsen, please head to the Emergency Department for further e valuation. Instructions explained to the pt, who understands and agrees with discharge plan. Discharge Exam - Head Exam Head Exam: ATRAUMATIC, NORMAL INSPECTION - Eye Exam Eye Exam: EOMI, Normal appearance - ENT Exam ENT Exam: Mucous Membranes Moist - Respiratory Exam Respiratory Exam: Clear to PA & Lateral. absent: Rales, Rhonchi, Wheezes, Respiratory Distress - Cardiovascular Exam Cardiovascular Exam: REGULAR RHYTHM, +S1, +S2 - GI/Abdominal Exam GI & Abdominal Exam: Normal Bowel Sounds, Soft. absent: Distended, Firm, Guarding, Rebound, Rigid, Tenderness - Back Exam Back exam: NORMAL INSPECTION. absent: CVA tenderness (L), CVA tenderness (R) - Neurological Exam Neurological exam: Alert, Oriented x3 - Psychiatric Exam Psychiatric exam: Normal Affect, Normal Mood - Skin Skin Exam: Dry, Intact, Normal Color, Warm Discharge Plan - Discharge Medications Prescriptions: Folic Acid 1 mg PO DAILY #30 tab Gabapentin [Neurontin] 300 mg PO DAILY #30 cap Multivitamins [Hexavitamin] 1 tab PO DAILY #30 tab Thiamine [Vitamin B1 Tab] 100 mg PO DAILY #30 tab - Follow Up Plan Condition: STABLE Disposition: HOME/ ROUTINE Instructions: Smoking: Not Just Harmful to Your Lungs and Heart, Chest Pain (DC), Folic Acid, Gabapentin, Thiamine Additional Instructions: Pt is medically stable as per Dr. Mathias. Prescriptions needed: Gabapentin 300 mg 1 tab by mouth once daily at nighttime. Folate 1 mg 1 tab by mouth once daily at 8 am. Thiamine 100 mg 1 tab by mouth once daily at 8 am. Multivitamins 1 tab by mouth once daily at 8 am Pt should continue taking prior medication as previously prescribed. Pt counseled on against using alcohol to excess and using cocaine, and their negative effects on health. Pt should follow up with PMD, or [facility], within 2 weeks of discharge. Call to make an appointment. Should symptoms worsen, please head to the Emergency Department for further evaluation. Instructions explained to the pt, who understands and agrees with discharge plan. Referrals: [facility] [Outside]
--- NOTE | 2018-05-22 19:22 | CARD ---
APPROVED REPORT Date of service: 05/22/2018 EKG Measurement Heart [id number] <Conclusion> Sinus bradycardia Septal infarct, age undetermined Abnormal ECG
--- NOTE | 2018-05-22 19:23 | CARD ---
APPROVED REPORT Date of service: 05/22/2018 EKG Measurement Heart [id number] <Conclusion> Normal sinus rhythm Normal ECG
== END 2018-05-22 15:47 | disposition home or self-care (01) ==
LOC: C.ER 17:49 → C.9E 22:05 → C.5S 05-22 05:55
PROVIDERS: ADMIT Family Medicine; ATTEND Family Medicine
DX: F14.10 Cocaine abuse, uncomplicated (principal); R07.89 Other chest pain; I10 Essential (primary) hypertension; I73.00 Raynaud's syndrome without gangrene; M34.9 Systemic sclerosis, unspecified; Z90.49 Acquired absence of other specified parts of digestive tract; Z82.49 Family history of ischemic heart disease and other diseases of the circulatory system
CPT/HCPCS: 36415; 70450; 71045; 76700; 80053; 80061; 80074; 83735; 84100; 84443; 84484; 85025; 85610; 85730; 86706; 93005; G0378; G0480; J1650